=== PATIENT | male | born 1970 | race Caucasian/White ===

== ENCOUNTER 2017-06-30 12:37 | Inpatient (IN) | payer OTHER ==
[~2017-06-30] VITALS: Ht 172.7 cm; Wt 95.0 kg
[2017-06-30 12:47] VITALS: BP 136/85; PULSE 79; RESP 28; TEMP 98.7
[2017-06-30] MEDS ORDERED: SODIUM CHLOR 0.9% 1000 ML INJ 1,000 ML IV SCH (13:02)
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
[2017-06-30] MEDS ORDERED: ONDANSETRON HCL 4 MG/2 ML VIAL IV PUSH ONE (13:15)
[2017-06-30] MEDS ORDERED: DIPHTH/TETANUS/ACEL PERTUSSIS (BOOSTER) 0.5 ML VIAL/PFS IM ONE ×2 (13:15→14:53)
[2017-06-30] MEDS ORDERED: MORPHINE SULFATE 4 MG/ML INJ IV PUSH ONE ×2 (13:15→16:45)
[2017-06-30] MEDS ORDERED: SODIUM CHLORIDE 0.9% FLUSH 10 ML FLUSH IVF PRN (13:15)
[2017-06-30] MEDS ORDERED: ceFAZolin 2 GM PREMIX 100 ML IV ONE (13:15)
[2017-06-30 13:51] LABS: AUTOMATED NEUTROPHIL # 11.1 TH/MM3 (1.8-7.7); BASOPHIL # 0.1 TH/MM3 (0-0.2); BASOPHIL % 0.4 % (0.0-2.0); EOSINOPHIL # 0.3 TH/MM3 (0-0.4); EOSINOPHIL % 2.3 % (0.0-4.0); HEMATOCRIT 43.6 % (39.0-51.0); HEMOGLOBIN 15.3 GM/DL (13.0-17.0); LYMPH % 18.5 % (9.0-44.0); LYMPHOCYTE # 2.8 TH/MM3 (1.0-4.8); MEAN CELL VOLUME 85.9 FL (80.0-100.0); MEAN CORPUSCULAR HEMOGLOBIN 30.2 PG (27.0-34.0); MEAN CORPUSCULAR HGB CONC 35.2 % (32.0-36.0); MONO % 4.4 % (0.0-8.0); MONOCYTE # 0.7 TH/MM3 (0-0.9); NEUT % 74.4 % (16.0-70.0); PLATELET COUNT 214 TH/MM3 (150-450); RED BLOOD COUNT 5.08 MIL/MM3 (4.50-5.90); RED CELL DISTRIBUTION WIDTH 12.8 % (11.6-17.2); WHITE BLOOD COUNT 14.9 TH/MM3 (4.0-11.0)
[2017-06-30 13:59] LABS: PROTHROMBIN TIME - PATIENT 10.4 SEC (9.8-11.6)
[2017-06-30 14:07] LABS: BICARBONATE 27.7 MEQ/L (21.0-32.0); BLOOD UREA NITROGEN 14 MG/DL (7-18); CALCIUM 8.8 MG/DL (8.5-10.1); CHLORIDE 109 MEQ/L (98-107); CREATININE 1.12 MG/DL (0.60-1.30); GLOMERULAR FILTRATION RATE 71 ML/MIN (>89); GLUCOSE,RANDOM 110 MG/DL (74-106); SODIUM (NA) 142 MEQ/L (136-145)
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
[2017-06-30] MEDS ORDERED: ceFAZolin INJ 1,000 MG VIAL ONE (14:53)
[2017-06-30] MEDS ORDERED: IOHEXOL 350 MG/ML 10 ML VIAL (for RAD DIAG) IVCONTRAST ONE (15:30)
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
[2017-06-30 16:59] VITALS: BP 156/70; PULSE 96; RESP 18; O2SAT 91
[2017-06-30] MEDS ORDERED: MORPHINE SULFATE 4 MG/ML INJ IV PUSH PRN (17:15)
[2017-06-30] MEDS ORDERED: SODIUM CHLORIDE 0.9% FLUSH 10 ML FLUSH IV FLUSH PRN (17:15)
[2017-06-30] MEDS ORDERED: ONDANSETRON HCL 4 MG/2 ML VIAL IV PUSH PRN (17:15)
[2017-06-30] MEDS: METHOCARBAMOL 500 MG TAB PO SCH ×2 (17:15→22:23)
[2017-06-30] MEDS ORDERED: ENALAPRILAT 1.25 MG/ML VIAL IV PUSH PRN (17:15)
[2017-06-30] MEDS: LIDOCAINE HCL 5% PATCH T-DERMAL SCH (17:15)
[2017-06-30] MEDS ORDERED: VITATAB56 PO (17:20)
[2017-06-30] MEDS ORDERED: ASPI-516 CHEW (17:20)
[2017-06-30] MEDS ORDERED: BACL10TA PO (17:20)
[2017-06-30] MEDS ORDERED: CYAN100 PO (17:20)
[2017-06-30] MEDS ORDERED: ABIL10TA8 PO (17:20)
[2017-06-30] MEDS ORDERED: CALC1TAB12 PO (17:20)
[2017-06-30] MEDS ORDERED: LOSA100T PO (17:20)
[2017-06-30] MEDS ORDERED: PRIS50TA PO (17:20)
[2017-06-30] MEDS ORDERED: VITA250C3 CHEW (17:20)
[2017-06-30] MEDS ORDERED: CARV25TA (17:20)
[2017-06-30] MEDS ORDERED: VITA250T3 PO (17:20)
[2017-06-30] MEDS ORDERED: FAMO1TAB37 PO (17:20)
[2017-06-30 19:10] VITALS: BP 137/78; PULSE 85; RESP 15; O2SAT 97
[2017-06-30 19:47] VITALS: BP 124/80
[2017-06-30 20:00] VITALS: BP 118/75; PULSE 88; RESP 18; TEMP 97.3; O2SAT 95
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
[2017-06-30] MEDS: FAMOTIDINE 20 MG TAB PO SCH (20:48)
[2017-06-30] MEDS: MAGNESIUM HYDROXIDE SUSP 30 ML CUP PO SCH (20:48)
[2017-06-30] MEDS: DOCUSATE SODIUM 100 MG CAP PO SCH (20:48)
[2017-06-30 23:00] VITALS: O2SAT 96
[2017-07-01] VITALS (7 sets, daily range): BP systolic 113–132; BP diastolic 63–69; PULSE 66–82; RESP 18–19; TEMP 97.2–98.2; O2SAT 94–97
[2017-07-01] MEDS ORDERED: SODIUM CHLORID 0.9% 500 ML IV PRN (00:30)
[2017-07-01] MEDS ORDERED: POVIDONE IODINE 5% (ANTISEPSIS KIT) 4 APPLICATIONS EACH NARE PRN (00:30)
[2017-07-01] MEDS ORDERED: CHLORHEXIDINE GLUCONATE 2 % 1 PACK (2 CLOTHS) TOPICAL PRN (00:30)
[2017-07-01] MEDS ORDERED: LACTATED RINGER'S 1000 ML IV PRN (00:30)
[2017-07-01] MEDS: SODIUM CHLOR 0.9% 1000 ML INJ 1,000 ML IV SCH ×3 (03:37→23:03)
[2017-07-01] MEDS ORDERED: METOPROLOL TARTRATE 25 MG TAB PO PRN (05:45)
[2017-07-01] MEDS: METHOCARBAMOL 500 MG TAB PO SCH (06:05)
[2017-07-01] MEDS ORDERED: MAGN30S PO (07:57)
[2017-07-01] MEDS ORDERED: DOCU1CAP39 PO (07:57)
[2017-07-01] MEDS ORDERED: METHOCARBAMOL 500 MG TAB PO PRN (08:15)
[2017-07-01] MEDS: FAMOTIDINE 20 MG TAB PO SCH ×2 (08:57→20:22)
[2017-07-01] MEDS: BACLOFEN 10 MG TAB PO SCH ×2 (08:57→20:22)
[2017-07-01] MEDS: LIDOCAINE HCL 5% PATCH T-DERMAL SCH (08:57)
[2017-07-01] MEDS: LOSARTAN 50 MG TAB PO SCH (08:57)
[2017-07-01] MEDS: CARVEDILOL 12.5 MG TAB PO SCH ×2 (08:57→20:23)
[2017-07-01] MEDS: CALCIUM/VITAMIN D 250 MG/125 U TAB PO SCH ×2 (08:58→20:23)
[2017-07-01] MEDS: DOCUSATE SODIUM 100 MG CAP PO SCH ×2 (08:58→20:22)
[2017-07-01] MEDS ORDERED: PT OWN: PRISTIQ 50MG PO SCH (09:00)
[2017-07-01] MEDS: MAGNESIUM HYDROXIDE SUSP 30 ML CUP PO SCH ×2 (09:00→20:22)
[2017-07-01] MEDS ORDERED: PNEUMOCOCCAL POLYVALENT INJ 25 MCG/0.5 ML SYR IM ONE (09:00)
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
[2017-07-01] MEDS: ARIPiprazole 5 MG TAB PO SCH (11:29)
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
[2017-07-01] MEDS ORDERED: MORPHINE SULFATE 4 MG/ML INJ IV PUSH PRN (12:45)
[2017-07-01] MEDS: ACETAMINOPHEN 1000 MG/100 ML 100 ML IV SCH ×2 (15:22→20:23)
[2017-07-01] MEDS: GABAPENTIN 300 MG CAP PO SCH ×2 (15:22→17:49)
--- NOTE | 2017-07-01 17:06 | EKG ---
Date Performed: 07/01/2017 Time Performed: 06:01:30 PTAGE: 46 years EKG: Sinus rhythm Leftward axis IV conduction defect Left ventricular hypertrophy Extensive ST-T changes may be due to hypertrophy and/or ischemia Abnormal ECG NO PREVIOUS TRACING DOCTOR: Dick Cross Interpretating Date/Time 07/01/2017 17:05:56
[2017-07-02] VITALS (7 sets, daily range): BP systolic 104–126; BP diastolic 60–71; PULSE 64–95; RESP 16–18; TEMP 97.1–98.4; O2SAT 94–96
[2017-07-02] MEDS: ACETAMINOPHEN 1000 MG/100 ML 100 ML IV SCH ×3 (02:13→20:10)
[2017-07-02 05:10] LABS: BASOPHIL % 0.2 % (0.0-2.0); EOSINOPHIL # 0.2 TH/MM3 (0-0.4); EOSINOPHIL % 1.7 % (0.0-4.0); HEMATOCRIT 34.2 % (39.0-51.0); LYMPHOCYTE # 2.7 TH/MM3 (1.0-4.8); MEAN CELL VOLUME 86.3 FL (80.0-100.0); MEAN CORPUSCULAR HEMOGLOBIN 30.3 PG (27.0-34.0); MEAN CORPUSCULAR HGB CONC 35.1 % (32.0-36.0); MEAN PLATELET VOLUME 9.3 FL (7.0-11.0); MONOCYTE # 0.7 TH/MM3 (0-0.9); NEUT % 63.1 % (16.0-70.0); PLATELET COUNT 159 TH/MM3 (150-450); RED BLOOD COUNT 3.97 MIL/MM3 (4.50-5.90); RED CELL DISTRIBUTION WIDTH 12.9 % (11.6-17.2); WHITE BLOOD COUNT 9.5 TH/MM3 (4.0-11.0)
[2017-07-02 05:18] LABS: BICARBONATE 28.1 MEQ/L (21.0-32.0); CALCIUM 8.2 MG/DL (8.5-10.1); CREATININE 1.05 MG/DL (0.60-1.30)
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
--- NOTE | 2017-07-02 07:20 | HHI.FF ---
Face to Face Verification Diagnosis: (1) Fracture of forearm, left, closed Occupational Therapy Left UE Weight Bearing: Non WB Left UE Range of Motion: Passive ROM Nursing Dressing Changes: Daily dressing change, Xeroform, Coverderm/Primapore I have seen patient Per Louis on 07/02/17. My clinical findings support the need for the requested home health care services because: Ltd mobility - disease progression I certify that my clinical findings support that this patient is homebound because: Post-op weakness Chris Flores/Family Worker PA Jul 02, 2017 07:20
[2017-07-02] MEDS ORDERED: HYDR-3580 PO (07:22)
[2017-07-02] MEDS: CARVEDILOL 12.5 MG TAB PO SCH ×2 (07:39→20:09)
[2017-07-02] MEDS ORDERED: ceFAZolin 2 GM PREMIX 50 ML ONE (08:11)
[2017-07-02] MEDS ORDERED: VANCOMYCIN HCL 1000 MG VIAL ONE (08:11)
[2017-07-02] MEDS ORDERED: GENTAMICIN SULFATE 80 MG/2 ML VIAL ONE (08:12)
[2017-07-02] MEDS: ARIPiprazole 5 MG TAB PO SCH (09:00)
[2017-07-02] MEDS: FAMOTIDINE 20 MG TAB PO SCH ×2 (09:00→20:09)
[2017-07-02] MEDS: BACLOFEN 10 MG TAB PO SCH ×2 (09:00→20:09)
[2017-07-02] MEDS: CALCIUM/VITAMIN D 250 MG/125 U TAB PO SCH ×2 (09:00→20:09)
[2017-07-02] MEDS: LIDOCAINE HCL 5% PATCH T-DERMAL SCH ×2 (09:00→18:20)
[2017-07-02] MEDS: LOSARTAN 50 MG TAB PO SCH (09:00)
[2017-07-02] MEDS: MAGNESIUM HYDROXIDE SUSP 30 ML CUP PO SCH ×2 (09:00→20:08)
[2017-07-02] MEDS: DOCUSATE SODIUM 100 MG CAP PO SCH ×2 (09:00→20:09)
[2017-07-02] MEDS ORDERED: DEXMEDETOMIDINE HCL 200 MCG/2 ML VIAL ONE (10:06)
[2017-07-02] MEDS: LACTATED RINGER'S 1000 ML INJ 1,000 ML IV SCH (11:57)
[2017-07-02] MEDS ORDERED: ROCURONIUM INJ 50 MG/5 ML SYRINGE IV PUSH ONE (12:00)
[2017-07-02] MEDS ORDERED: LACTATED RINGER'S 1000 ML INJ 1,000 ML IV ONE (12:00)
[2017-07-02] MEDS ORDERED: LIDOCAINE HCL 1% PF 5 ML SYRINGE OTHER ONE (12:00)
[2017-07-02] MEDS ORDERED: ONDANSETRON HCL 4 MG/2 ML VIAL IV PUSH ONE (12:00)
[2017-07-02] MEDS ORDERED: KETOROLAC TROMETHAMINE 30 MG/ML (IVP) VIAL IV PUSH ONE (12:00)
[2017-07-02] MEDS ORDERED: STERILE WATER FOR INJECTION 20 ML VIAL IV ONE (12:00)
[2017-07-02] MEDS ORDERED: SODIUM CHLOR 0.9% 250 ML INJ 250 ML IV ONE (12:00)
[2017-07-02] MEDS ORDERED: VECURONIUM BROMIDE 20 MG VIAL IV ONE (12:00)
[2017-07-02] MEDS ORDERED: PROPOFOL 200 MG/20 ML AMP IV ONE (12:00)
[2017-07-02] MEDS ORDERED: DEXAMETHASONE SOD PHOS 4 MG/ML VIAL IV ONE (12:00)
[2017-07-02] MEDS ORDERED: PHENYLEPH/NS 1000 MCG/10 ML SYR IV ONE (12:00)
[2017-07-02] MEDS ORDERED: NEOSTIGMINE 5 MG/5 ML SYRINGE IV PUSH ONE (12:00)
[2017-07-02] MEDS ORDERED: GLYCOPYRROLATE 1 MG/5 ML SYRINGE IV PUSH ONE (12:00)
--- NOTE | 2017-07-02 12:07 | PD.OP ---
cc: Yunier Easley MD Operative Report Date of Surgery: Jul 02, 2017 Preoperative Diagnosis: Displaced left radius and ulna shaft fractures Postoperative Diagnosis: Procedure: Open reduction internal fixation left radial shaft, open reduction fixation left ulnar shaft fractures Anesthesia: General Surgeon: Yunier Easley Instructor Adjunct Pharmacy Technician(s): REZA Miller PA-C The surgical procedure was assisted by my physician assistant manager of operations. My P.A. presence was necessary throughout this case for the manipulation and positioning of the surgical extremity. My P.A. was assisting me throughout the duration of this procedure. The skill set of a physician assistant manager of operations was medically necessary to complete this procedure. During the surgical case the surgical endoscopist was working at the back table and the physician assistant manager of operations was directly assisting me. Operation and Findings: Patient was seen and examined preoperatively. Patient was found to have displaced left radius and ulna shaft fractures. Informed consent was obtained and operative site was marked. Patient was brought to operating room and given IV sedation and general anesthesia. Timeout procedure was performed. Operative extremity was prepped and draped with alcohol followed by Hibiclens and draped in usual sterile fashion. IV antibiotics were administered prior to incision. Procedure began with a 5 inch incision over the subcutaneous border of the ulna. Fascia was elevated off of the bone. Fracture site was visualized. Fracture tenaculums were used to reduce fracture. There was an additional butterfly fragment that was reduced. Fracture keyed into anatomic alignment. A Synthes plate was placed across the fracture. Plate was provisionally held to bone with K wires. 3.5 cortical screws were used to compress plate to bone. Multiple screws were placed in each side of fracture. K wires were removed. Fluoroscopy confirmed excellent alignment of fracture with well-placed hardware. Incision was now closed with #1 Vicryl, 3-0 Vicryl, and zachary. Next attention was turned to the radius. A 5 inch incision was made over the volar aspect of the forearm. A standard volar approach was utilized. The interval between the radial artery and superficial radial nerve was identified. Neurovascular structures were protected. Soft tissue was elevated off the bone. Fracture site was visualized. Fracture fragments were carefully reduced. The fracture was difficult to appellate court judge reduction. Patient had a large amount of heterotopic bone from previous fracture. There was some deformity of the radius from previous injury. There was mild comminution at the fracture site. The fractures did not have an obvious reduction horne. K wires were used to hold provisional fixation. A Synthes plate was contoured to fit the radius. Plate was provisionally held with K wires. 3.5 cortical screws were used to compress plate to bone. Multiple screws were placed in each side of fracture. K wires were removed. The volar incision was now partially closed. Patient had moderate swelling of the forearm. Because of the swelling I did not feel that it was safe to completely close the incision. A wound VAC dressing was now applied. VAC dressing was cut to fit the wound and sealed appropriately. Final fluoroscopy revealed excellent of fracture with well-placed hardware. Sterile dressings were applied with Xeroform 4 x 4 soft roll and Ronnie wrap. Patient was awakened and transferred to recovery room in stable condition. Forearm compartments were soft and compressible. Patient will need surgery for wound closure in 2-3 days when swelling has improved. Yunier Easley MD Jul 02, 2017 12:07
[2017-07-02] MEDS ORDERED: DO NOT ADM ANY ANTICOAGULANT DRUGS PRN (12:27)
[2017-07-02] MEDS ORDERED: MIDAZOLAM HCL 2 MG/2 ML VIAL ONE (12:35)
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
[2017-07-02] MEDS ORDERED: *morphine SULFATE 8 MG/ML PERIprocedure ONLY ONE (13:00)
[2017-07-02] MEDS: GABAPENTIN 300 MG CAP PO SCH ×2 (13:00→17:08)
[2017-07-02] MEDS: KETOROLAC TROMETHAMINE 30 MG/ML (IVP) VIAL IVP SCH ×2 (14:21→20:09)
--- NOTE | 2017-07-02 15:23 | RADRPT ---
EXAM DATE/TIME: 07/02/2017 11:42 [facility] COMPARISON: FOREARM LEFT (2VWS), June 30, 2017, 13:47. INDICATIONS : ORIF left forearm fracture. MEDICAL HISTORY : Unobtainable. SURGICAL HISTORY : Unobtainable. ENCOUNTER: Subsequent ACUITY: 2 days PAIN SCORE: Non-responsive. LOCATION: Left forearm. CONCLUSION: Fluoroscopic images during internal fixation with plate and screws along the radius and ulna fixating fractures which are near anatomic. Derrick Carter MD on July 02, 2017 at 15:20 Board Certified Radiologist. This report was verified electronically.
[2017-07-02] MEDS: ceFAZolin 2 GM PREMIX 50 ML IV SCH ×2 (18:20→23:52)
[2017-07-02] MEDS: VANCOMYCIN INJ 1,000 MG in SODIUM CHLOR 0.9% 250 ML INJ 250 ML IV SCH (21:05)
[2017-07-03] VITALS (8 sets, daily range): BP systolic 111–132; BP diastolic 61–71; PULSE 77–91; RESP 18; TEMP 97.1–98.2; O2SAT 95–97
[2017-07-03] MEDS: LACTATED RINGER'S 1000 ML INJ 1,000 ML IV SCH (00:27)
[2017-07-03] MEDS: KETOROLAC TROMETHAMINE 30 MG/ML (IVP) VIAL IVP SCH ×4 (02:06→21:56)
[2017-07-03 06:18] LABS: AUTOMATED NEUTROPHIL # 12.5 TH/MM3 (1.8-7.7); BASOPHIL % 0.3 % (0.0-2.0); HEMATOCRIT 33.5 % (39.0-51.0); HEMOGLOBIN 11.5 GM/DL (13.0-17.0); LYMPH % 9.9 % (9.0-44.0); LYMPHOCYTE # 1.5 TH/MM3 (1.0-4.8); MEAN CELL VOLUME 86.4 FL (80.0-100.0); MEAN CORPUSCULAR HEMOGLOBIN 29.6 PG (27.0-34.0); MEAN CORPUSCULAR HGB CONC 34.2 % (32.0-36.0); MEAN PLATELET VOLUME 9.2 FL (7.0-11.0); MONO % 5.6 % (0.0-8.0); MONOCYTE # 0.8 TH/MM3 (0-0.9); NEUT % 84.2 % (16.0-70.0); PLATELET COUNT 182 TH/MM3 (150-450); RED BLOOD COUNT 3.87 MIL/MM3 (4.50-5.90); RED CELL DISTRIBUTION WIDTH 12.7 % (11.6-17.2); WHITE BLOOD COUNT 14.9 TH/MM3 (4.0-11.0)
[2017-07-03 06:42] LABS: BICARBONATE 26.5 MEQ/L (21.0-32.0); CALCIUM 8.5 MG/DL (8.5-10.1); CREATININE 1.01 MG/DL (0.60-1.30)
--- NOTE | 2017-07-03 06:47 | PD.ORT.PN ---
Subjective Subjective Remarks Pain controlled. Is in Colles' sling and has wound VAC in place Objective Vitals Vital Signs Date Time Temp Pulse Resp B/P (MAP) Pulse Ox O2 Delivery O2 Flow Rate FiO2 07/03/17 04:54 18 07/03/17 04:00 97.3 84 18 132/69 (90) 95 07/03/17 02:52 18 07/03/17 00:00 97.8 91 18 122/61 (81) 95 07/02/17 21:29 Nasal Cannula 3.00 07/02/17 20:45 18 07/02/17 20:00 98.3 95 18 124/71 (88) 95 07/02/17 17:05 97.3 89 18 121/69 (86) 95 07/02/17 16:29 94 Nasal Cannula 3.00 07/02/17 13:30 97.2 64 18 126/69 (88) 94 07/02/17 13:15 97.5 66 16 120/65 (83) 98 Nasal Cannula 3 07/02/17 13:05 15 07/02/17 13:00 63 15 118/63 (81) 97 Nasal Cannula 3 07/02/17 12:45 60 15 112/64 (80) 98 Nasal Cannula 4 07/02/17 12:30 59 15 104/60 (75) 96 Nasal Cannula 4 07/02/17 12:25 97.8 58 16 94/53 (67) 94 Nasal Cannula 4 07/02/17 08:00 98.4 66 18 119/68 (85) 96 I/O 07/02/17 07/02/17 07/02/17 07/03/17 07/03/17 07/03/17 07:00 15:00 23:00 07:00 15:00 23:00 Intake Total 100 ml 1500 ml 350 ml 50 ml Output Total 100 ml 220 ml Balance 100 ml 1400 ml 130 ml 50 ml IV Total 100 ml 350 ml 50 ml Other 1500 ml Drainage Total 220 ml Estimated Blood Loss 100 ml # Voids 0 Result Diagram: 07/03/17 0604 07/03/17 0604 Imaging Last [address] 06/30/17 1302 Signed Impressions: Service Date/Time: Friday, June 30, 2017 15:06 - CONCLUSION: 1. No fracture is seen. 2. Soft tissue swelling of the right scalp and right face. 3. Mild right frontal and right anterior ethmoid sinuses. Dimitry Rainey MD Head CT 06/30/17 1302 Signed Impressions: Service Date/Time: Friday, June 30, 2017 15:06 - CONCLUSION: No acute intracranial injury Dimitry Ordonez MD Chest X-Ray 06/30/17 130 Signed Impressions: Service Date/Time: Friday, June 30, 2017 13:38 - CONCLUSION: Abnormal chest appearance iDmitry Ordonez MD Chest CT 06/30/17 130 Signed Impressions: Service Date/Time: Friday, June 30, 2017 15:22 - CONCLUSION: Manubrial fracture and left second rib fracture. Minimal underlying mediastinal hematoma and small left effusion. Dimitry Ordonez MD Cervical Spine CT 06/30/17 130 Signed Impressions: Service Date/Time: Friday, June 30, 2017 15:06 - CONCLUSION: No acute bony injury in the cervical spine Dimitry Ordonez MD Abdomen/Pelvis CT 06/30/17 130 Signed Impressions: Service Date/Time: Friday, June 30, 2017 15:22 - CONCLUSION: No acute traumatic injury in the abdomen or pelvis. Dimitry Ordonez MD Objective Remarks Right upper extremity: Full range of motion and neurovascularly intact Bilateral lower extremities: Full range of motion with no pain or laxity. Intact sensation distally. Left upper extremity: No pain with shoulder motion. Clean dry dressings with intact sensation of her radial ulnar median nerve distributions with good capillary refills. He is able to slightly extend and flex all his fingers. Assessment & Plan Assessment and Plan Left radius and ulna shaft fractures ORIF POD 1 with wound VAC application Remain in college sling and elevate arm Maintain wound VAC N.p.o. after midnight If swelling has improved we will plan on going back to the OR tomorrow for irrigation debridement and final closure. Potentially may be postponed until Saturday depending on swelling. Nonweightbearing left upper extremity Omar Lunsford Jr. Jul 03, 2017 06:47
--- NOTE | 2017-07-03 06:59 | PD.ORT.PN ---
Subjective Subjective Remarks POD 1 s/p ORIF Left BBFA with vac placement doing well. reports pain better today than yesterday Objective Vitals Vital Signs Date Time Temp Pulse Resp B/P (MAP) Pulse Ox O2 Delivery O2 Flow Rate FiO2 07/03/17 04:54 18 07/03/17 04:00 97.3 84 18 132/69 (90) 95 07/03/17 02:52 18 07/03/17 00:00 97.8 91 18 122/61 (81) 95 07/02/17 21:29 Nasal Cannula 3.00 07/02/17 20:45 18 07/02/17 20:00 98.3 95 18 124/71 (88) 95 07/02/17 17:05 97.3 89 18 121/69 (86) 95 07/02/17 16:29 94 Nasal Cannula 3.00 07/02/17 13:30 97.2 64 18 126/69 (88) 94 07/02/17 13:15 97.5 66 16 120/65 (83) 98 Nasal Cannula 3 07/02/17 13:05 15 07/02/17 13:00 63 15 118/63 (81) 97 Nasal Cannula 3 07/02/17 12:45 60 15 112/64 (80) 98 Nasal Cannula 4 07/02/17 12:30 59 15 104/60 (75) 96 Nasal Cannula 4 07/02/17 12:25 97.8 58 16 94/53 (67) 94 Nasal Cannula 4 07/02/17 08:00 98.4 66 18 119/68 (85) 96 I/O 07/02/17 07/02/17 07/02/17 07/03/17 07/03/17 07/03/17 07:00 15:00 23:00 07:00 15:00 23:00 Intake Total 100 ml 1500 ml 350 ml 410 ml Output Total 100 ml 220 ml 1300 ml Balance 100 ml 1400 ml 130 ml -890 ml Intake Oral 360 ml IV Total 100 ml 350 ml 50 ml Other 1500 ml Output Urine Total 1300 ml Drainage Total 220 ml Estimated Blood Loss 100 ml # Voids 0 # Bowel Movements 0 Result Diagram: 07/03/17 0604 07/03/17 0604 Imaging Last [address] 06/30/17 1302 Signed Impressions: Service Date/Time: Friday, June 30, 2017 15:06 - CONCLUSION: 1. No fracture is seen. 2. Soft tissue swelling of the right scalp and right face. 3. Mild right frontal and right anterior ethmoid sinuses. Dimitry Rainey MD Head CT 06/30/17 1302 Signed Impressions: Service Date/Time: Friday, June 30, 2017 15:06 - CONCLUSION: No acute intracranial injury Dimitry Ordonez MD Chest X-Ray 06/30/17 1302 Signed Impressions: Service Date/Time: Friday, June 30, 2017 13:38 - CONCLUSION: Abnormal chest appearance Dimitry Ordonez MD Chest CT 06/30/17 1302 Signed Impressions: Service Date/Time: Friday, June 30, 2017 15:22 - CONCLUSION: Manubrial fracture and left second rib fracture. Minimal underlying mediastinal hematoma and small left effusion. Dimitry Ordonez MD Cervical Spine CT 06/30/17 1302 Signed Impressions: Service Date/Time: Friday, June 30, 2017 15:06 - CONCLUSION: No acute bony injury in the cervical spine Dimitry Ordonez MD Abdomen/Pelvis CT 06/30/17 1302 Signed Impressions: Service Date/Time: Friday, June 30, 2017 15:22 - CONCLUSION: No acute traumatic injury in the abdomen or pelvis. Dimitry Ordonez MD Objective Remarks LUE: +vac. good seal. +colleys sling. good movement of fingers with full sensation Assessment & Plan Assessment and Plan 1) Left radius and ulna shaft fractures ORIF POD 1 with wound VAC application Remain in alvin sling and elevate arm Maintain wound VAC N.p.o. after midnight If swelling has improved we will plan on going back to the OR tomorrow for irrigation debridement and final closure. Potentially may be postponed until Saturday depending on swelling. Nonweightbearing left upper extremity Chris Flores/Case Resolution Specialist FRANCESCA Jul 03, 2017 06:59
[2017-07-03] MEDS: CALCIUM/VITAMIN D 250 MG/125 U TAB PO SCH ×2 (07:51→21:56)
[2017-07-03] MEDS: MAGNESIUM HYDROXIDE SUSP 30 ML CUP PO SCH ×2 (07:51→21:54)
[2017-07-03] MEDS: FAMOTIDINE 20 MG TAB PO SCH ×2 (07:51→21:54)
[2017-07-03] MEDS: DOCUSATE SODIUM 50 MG/SENNA 8.6 MG TAB PO SCH ×2 (07:51→21:56)
[2017-07-03] MEDS: ceFAZolin 2 GM PREMIX 50 ML IV SCH ×2 (07:52→17:36)
[2017-07-03] MEDS: CARVEDILOL 12.5 MG TAB PO SCH ×2 (07:52→21:56)
[2017-07-03] MEDS: LIDOCAINE HCL 5% PATCH T-DERMAL SCH (07:52)
[2017-07-03] MEDS: LOSARTAN 50 MG TAB PO SCH (07:52)
[2017-07-03] MEDS: ARIPiprazole 5 MG TAB PO SCH (07:53)
[2017-07-03] MEDS: GABAPENTIN 300 MG CAP PO SCH ×3 (07:53→17:36)
[2017-07-03] MEDS: BACLOFEN 10 MG TAB PO SCH ×2 (08:01→21:56)
[2017-07-03] MEDS: VANCOMYCIN INJ 1,000 MG in SODIUM CHLOR 0.9% 250 ML INJ 250 ML IV SCH ×2 (10:45→21:55)
[2017-07-03] MEDS ORDERED: LACTULOSE SYRUP 20 GM/30 ML CUP PO ONE (14:00)
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
[2017-07-04] VITALS: BP 130/61; PULSE 71; RESP 18; TEMP 97.5; O2SAT 94
[2017-07-04] MEDS: ceFAZolin 2 GM PREMIX 50 ML IV SCH ×4 (00:40→22:51)
[2017-07-04 04:00] VITALS: BP 133/85; PULSE 69; RESP 18; TEMP 98.7; O2SAT 98
--- NOTE | 2017-07-04 06:38 | PD.ORT.PN ---
Subjective Subjective Remarks Pain controlled. Is in Colles' sling and has wound VAC in place Objective Vitals Vital Signs Date Time Temp Pulse Resp B/P (MAP) Pulse Ox O2 Delivery O2 Flow Rate FiO2 07/04/17 04:00 98.7 69 18 133/85 (101) 98 07/04/17 00:00 97.5 71 18 130/61 (84) 94 07/03/17 20:00 97.6 80 18 111/61 (78) 96 07/03/17 17:58 96 Nasal Cannula 2.00 07/03/17 15:36 97.5 80 18 117/67 (84) 96 07/03/17 11:00 97 Nasal Cannula 3.00 07/03/17 10:52 97.1 77 18 120/64 (82) 97 07/03/17 09:30 Nasal Cannula 3.00 07/03/17 07:47 98.2 81 18 121/71 (88) 97 I/O 07/03/17 07/03/17 07/03/17 07/04/17 07/04/17 07/04/17 07:00 15:00 23:00 07:00 15:00 23:00 Intake Total 410 ml 850 ml 360 ml Output Total 1325 ml 125 ml Balance -915 ml 850 ml -125 ml 360 ml Intake Oral 360 ml 850 ml 360 ml IV Total 50 ml Output Urine Total 1300 ml Drainage Total 25 ml 125 ml # Voids 2 5 # Bowel Movements 0 2 Result Diagram: 07/03/17 0604 07/03/17 0604 Imaging Last [address] 06/30/17 130 Signed Impressions: Service Date/Time: Friday, June 30, 2017 15:06 - CONCLUSION: 1. No fracture is seen. 2. Soft tissue swelling of the right scalp and right face. 3. Mild right frontal and right anterior ethmoid sinuses. Dimitry Rainey MD Head CT 06/30/17 130 Signed Impressions: Service Date/Time: Friday, June 30, 2017 15:06 - CONCLUSION: No acute intracranial injury Dimitry Ordonez MD Chest X-Ray 06/30/171301 Signed Impressions: Service Date/Time: Friday, June 30, 2017 13:38 - CONCLUSION: Abnormal chest appearance Dimitry Ordonez MD Chest CT 06/30/17 1302 Signed Impressions: Service Date/Time: Friday, June 30, 2017 15:22 - CONCLUSION: Manubrial fracture and left second rib fracture. Minimal underlying mediastinal hematoma and small left effusion. Dimitry Ordonez MD Cervical Spine CT 06/30/17 1302 Signed Impressions: Service Date/Time: Friday, June 30, 2017 15:06 - CONCLUSION: No acute bony injury in the cervical spine Dimitry Ordonez MD Abdomen/Pelvis CT 06/30/17 1302 Signed Impressions: Service Date/Time: Friday, June 30, 2017 15:22 - CONCLUSION: No acute traumatic injury in the abdomen or pelvis. Dimitry Ordonez MD Objective Remarks LUE: +vac. good seal. +colle's sling. good movement of fingers with full sensation Assessment & Plan Assessment and Plan 1) Left radius and ulna shaft fractures ORIF POD 1 with wound VAC application Remain in colles sling and elevate arm Maintain wound VAC Resume diet, N.p.o. after midnight we will plan on going back to the OR tomorrow for irrigation debridement and final closure. Nonweightbearing left upper extremity Omar Lunsford Jr. Jul 04, 2017 06:38
[2017-07-04 08:00] VITALS: BP 134/77; PULSE 62; RESP 19; TEMP 98.8; O2SAT 94
[2017-07-04] MEDS: CARVEDILOL 12.5 MG TAB PO SCH ×2 (08:42→21:20)
[2017-07-04] MEDS: FAMOTIDINE 20 MG TAB PO SCH ×2 (08:42→21:20)
[2017-07-04] MEDS: DOCUSATE SODIUM 50 MG/SENNA 8.6 MG TAB PO SCH ×2 (08:42→21:20)
[2017-07-04] MEDS: LOSARTAN 50 MG TAB PO SCH (08:42)
[2017-07-04] MEDS: ARIPiprazole 5 MG TAB PO SCH (08:42)
[2017-07-04] MEDS: GABAPENTIN 300 MG CAP PO SCH ×3 (08:43→17:16)
[2017-07-04] MEDS: MAGNESIUM HYDROXIDE SUSP 30 ML CUP PO SCH ×2 (08:43→21:19)
[2017-07-04] MEDS: CALCIUM/VITAMIN D 250 MG/125 U TAB PO SCH ×2 (08:43→17:15)
[2017-07-04] MEDS: BACLOFEN 10 MG TAB PO SCH ×2 (08:43→21:20)
[2017-07-04] MEDS: VANCOMYCIN INJ 1,000 MG in SODIUM CHLOR 0.9% 250 ML INJ 250 ML IV SCH (09:00)
[2017-07-04] MEDS: LIDOCAINE HCL 5% PATCH T-DERMAL SCH (09:00)
[2017-07-04 11:39] VITALS: BP 134/75; PULSE 78; RESP 19; TEMP 97.6; O2SAT 94
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
[2017-07-04 15:19] VITALS: BP 135/80; PULSE 77; RESP 18; TEMP 97.2; O2SAT 96
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
[2017-07-04] MEDS: MOXIFLOXACIN 0.5% OPHT SOLN 3 ML BTL EACH EYE SCH (18:00)
[2017-07-04 20:00] VITALS: BP 132/77; PULSE 75; RESP 18; TEMP 98.2; O2SAT 97
[2017-07-05] VITALS: BP 113/72; PULSE 75; RESP 18; TEMP 97.7; O2SAT 96
[2017-07-05 04:00] VITALS: BP 124/75; PULSE 75; RESP 18; TEMP 98.2; O2SAT 96
[2017-07-05] MEDS ORDERED: SODIUM CHLORID 0.9% 500 ML IV PRN (06:45)
[2017-07-05] MEDS ORDERED: POVIDONE IODINE 5% (ANTISEPSIS KIT) 4 APPLICATIONS EACH NARE PRN (06:45)
[2017-07-05] MEDS ORDERED: ACETAMINOPHEN 1000 MG/100 ML 100 ML IV ONE (06:45)
[2017-07-05] MEDS ORDERED: LACTATED RINGER'S 1000 ML IV PRN (06:45)
[2017-07-05] MEDS ORDERED: CHLORHEXIDINE GLUCONATE 2 % 1 PACK (2 CLOTHS) TOPICAL PRN (06:45)
[2017-07-05] MEDS ORDERED: GENTAMICIN SULFATE 80 MG/2 ML VIAL ONE (06:48)
[2017-07-05] MEDS ORDERED: VANCOMYCIN HCL 1000 MG VIAL ONE (06:48)
[2017-07-05] MEDS ORDERED: SODIUM CHLOR 0.9% 250 ML INJ 250 ML ONE (06:49)
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
[2017-07-05] MEDS ORDERED: DO NOT ADM ANY ANTICOAGULANT DRUGS PRN (08:30)
[2017-07-05] MEDS ORDERED: MIDAZOLAM HCL 2 MG/2 ML VIAL ONE (08:30)
--- NOTE | 2017-07-05 09:24 | PD.ORT.PN ---
Subjective Subjective Remarks Transferred back to PACU in stable condition Objective Vitals Vital Signs Date Time Temp Pulse Resp B/P (MAP) Pulse Ox O2 Delivery O2 Flow Rate FiO2 07/05/17 09:00 67 17 109/70 (83) 94 Room Air 07/05/17 08:45 67 18 104/66 (79) 94 Room Air 07/05/17 08:30 67 12 103/63 (76) 99 Nasal Cannula 3 07/05/17 08:26 98.5 69 24 95/69 (78) 97 Nasal Cannula 3 07/05/17 04:00 98.2 75 18 124/75 (91) 96 07/05/17 00:00 97.7 75 18 113/72 (86) 96 07/04/17 20:00 98.2 75 18 132/77 (95) 97 07/04/17 15:19 97.2 77 18 135/80 (98) 96 07/04/17 11:39 97.6 78 19 134/75 (94) 94 I/O 07/04/17 07/04/17 07/04/17 07/05/17 07/05/17 07/05/17 07:00 15:00 23:00 07:00 15:00 23:00 Intake Total 360 ml 900 ml 0 ml 400 ml Output Total 25 ml 460 ml Balance 360 ml 875 ml 0 ml -60 ml Intake Oral 360 ml 900 ml 0 ml Other 400 ml Output Urine Total 450 ml Drainage Total 25 ml Estimated Blood Loss 10 ml # Voids 5 3 3 1 # Bowel Movements 2 0 Result Diagram: 07/03/17 0604 07/03/17 0604 Imaging Last [address] 06/30/17 1302 Signed Impressions: Service Date/Time: Friday, June 30, 2017 15:06 - CONCLUSION: 1. No fracture is seen. 2. Soft tissue swelling of the right scalp and right face. 3. Mild right frontal and right anterior ethmoid sinuses. Dimitry Rainey MD Head CT 06/30/17 1302 Signed Impressions: Service Date/Time: Friday, June 30, 2017 15:06 - CONCLUSION: No acute intracranial injury Dimitry Ordonez MD Chest X-Ray 06/30/17 1302 Signed Impressions: Service Date/Time: Friday, June 30, 2017 13:38 - CONCLUSION: Abnormal chest appearance Dimitry Ordonez MD Chest CT 06/30/17 1302 Signed Impressions: Service Date/Time: Friday, June 30, 2017 15:22 - CONCLUSION: Manubrial fracture and left second rib fracture. Minimal underlying mediastinal hematoma and small left effusion. Dimitry Ordonez MD Cervical Spine CT 06/30/17 1302 Signed Impressions: Service Date/Time: Friday, June 30, 2017 15:06 - CONCLUSION: No acute bony injury in the cervical spine Dimitry Ordonez MD Abdomen/Pelvis CT 06/30/17 1302 Signed Impressions: Service Date/Time: Friday, June 30, 2017 15:22 - CONCLUSION: No acute traumatic injury in the abdomen or pelvis. Dimitry Ordonez MD Objective Remarks Left upper extremity: VAC is been removed. Clean dry dressings intact. Good capillary refills. Swelling of +3 of the forearm. Placed in Lenora sling Assessment & Plan Assessment and Plan 1) Left radius and ulna shaft fractures ORIF POD 2 with final closure POD 0 Remain in Colles sling and elevate arm Toradol Nonweightbearing left upper extremity Depending on swelling he may be discharged home tomorrow Follow-up with Dr. Benjamín MA in 2 weeks Omar Lunsford Jr. Jul 05, 2017 09:24
[2017-07-05 09:30] VITALS: BP 124/84; PULSE 72; RESP 16; TEMP 98; O2SAT 95
[2017-07-05] MEDS: MAGNESIUM HYDROXIDE SUSP 30 ML CUP PO SCH ×2 (10:30→21:04)
[2017-07-05] MEDS: LIDOCAINE HCL 5% PATCH T-DERMAL SCH (11:03)
[2017-07-05] MEDS: MOXIFLOXACIN 0.5% OPHT SOLN 3 ML BTL EACH EYE SCH ×3 (11:03→18:00)
[2017-07-05] MEDS: BACLOFEN 10 MG TAB PO SCH ×2 (11:04→21:04)
[2017-07-05] MEDS: FAMOTIDINE 20 MG TAB PO SCH ×2 (11:04→21:04)
[2017-07-05] MEDS: ARIPiprazole 5 MG TAB PO SCH (11:04)
[2017-07-05] MEDS: GABAPENTIN 300 MG CAP PO SCH ×3 (11:04→18:00)
[2017-07-05] MEDS: CARVEDILOL 12.5 MG TAB PO SCH ×2 (11:04→21:04)
[2017-07-05] MEDS: LOSARTAN 50 MG TAB PO SCH (11:05)
[2017-07-05] MEDS: DOCUSATE SODIUM 50 MG/SENNA 8.6 MG TAB PO SCH ×2 (11:05→21:05)
[2017-07-05] MEDS: CALCIUM/VITAMIN D 250 MG/125 U TAB PO SCH ×2 (11:05→21:04)
[2017-07-05 12:00] VITALS: BP 115/75; PULSE 73; RESP 16; TEMP 98; O2SAT 95
[2017-07-05] MEDS ORDERED: ROCURONIUM INJ 50 MG/5 ML SYRINGE IV PUSH ONE (12:00)
[2017-07-05] MEDS ORDERED: ONDANSETRON HCL 4 MG/2 ML VIAL IV ONE (12:00)
[2017-07-05] MEDS ORDERED: KETOROLAC TROMETHAMINE 30 MG/ML (IVP) VIAL IV PUSH ONE (12:00)
[2017-07-05] MEDS ORDERED: PROPOFOL 200 MG/20 ML AMP IV ONE (12:00)
[2017-07-05] MEDS ORDERED: DEXAMETHASONE SOD PHOS 4 MG/ML VIAL IV ONE (12:00)
[2017-07-05] MEDS ORDERED: LIDOCAINE HCL 1% PF 5 ML SYRINGE OTHER ONE (12:00)
[2017-07-05] MEDS: KETOROLAC TROMETHAMINE 30 MG/ML (IVP) VIAL IVP SCH ×2 (14:04→21:05)
[2017-07-05] MEDS: VANCOMYCIN INJ 1,000 MG in SODIUM CHLOR 0.9% 250 ML INJ 250 ML IV SCH (14:05)
[2017-07-05] MEDS: ceFAZolin 2 GM PREMIX 50 ML IV SCH ×2 (14:05→23:00)
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
[2017-07-05 16:00] VITALS: BP 121/68; PULSE 78; RESP 16; TEMP 97.7; O2SAT 94
[2017-07-05 20:00] VITALS: BP 123/82; PULSE 76; RESP 18; TEMP 97.5; O2SAT 94
[2017-07-06 00:12] VITALS: BP 127/65; PULSE 74; RESP 18; TEMP 97.4; O2SAT 95
[2017-07-06 04:00] VITALS: BP 122/65; PULSE 77; RESP 18; TEMP 98.1; O2SAT 94
[2017-07-06] MEDS: VANCOMYCIN INJ 1,000 MG in SODIUM CHLOR 0.9% 250 ML INJ 250 ML IV SCH (04:35)
[2017-07-06] MEDS: KETOROLAC TROMETHAMINE 30 MG/ML (IVP) VIAL IVP SCH (06:00)
[2017-07-06] MEDS: ceFAZolin 2 GM PREMIX 50 ML IV SCH (07:00)
[2017-07-06 08:00] VITALS: BP 124/66; PULSE 63; RESP 16; TEMP 98; O2SAT 98
[2017-07-06] MEDS: MOXIFLOXACIN 0.5% OPHT SOLN 3 ML BTL EACH EYE SCH ×2 (10:50→13:46)
[2017-07-06] MEDS: BACLOFEN 10 MG TAB PO SCH (10:52)
[2017-07-06] MEDS: CALCIUM/VITAMIN D 250 MG/125 U TAB PO SCH (10:52)
[2017-07-06] MEDS: LOSARTAN 50 MG TAB PO SCH (10:52)
[2017-07-06] MEDS: GABAPENTIN 300 MG CAP PO SCH ×2 (10:52→15:18)
[2017-07-06] MEDS: DOCUSATE SODIUM 50 MG/SENNA 8.6 MG TAB PO SCH (10:52)
[2017-07-06] MEDS: ARIPiprazole 5 MG TAB PO SCH (10:52)
[2017-07-06] MEDS: FAMOTIDINE 20 MG TAB PO SCH (10:52)
[2017-07-06] MEDS: CARVEDILOL 12.5 MG TAB PO SCH (10:52)
[2017-07-06] MEDS: MAGNESIUM HYDROXIDE SUSP 30 ML CUP PO SCH (10:52)
[2017-07-06 12:00] VITALS: BP 134/72; PULSE 74; RESP 16; TEMP 98; O2SAT 97
[2017-07-06] MEDS: LIDOCAINE HCL 5% PATCH T-DERMAL SCH (13:46)
[2017-07-06] MEDS ORDERED: LIDO1ADH4 T-DERMAL (14:52)
[2017-07-06] MEDS ORDERED: VIGA0.5D EACH EYE (14:55)
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
== END 2017-07-06 17:50 | disposition home health service (06) | DRG 511 ==
LOC: NEPC 12:37 → NEDA 16:46 → N06A 19:58
PROVIDERS: ADMIT Surgery; ATTEND Surgery
PROC: 0PSJ04Z Reposition Left Radius with Internal Fixation Device, Open Approach (ICD-10-PCS; 2017-07-02)
PROC: 0PSL04Z Reposition Left Ulna with Internal Fixation Device, Open Approach (ICD-10-PCS; principal; 2017-07-02 10:25)
PROC: 0JQH3ZZ Repair Left Lower Arm Subcutaneous Tissue and Fascia, Percutaneous Approach (ICD-10-PCS; 2017-07-05)
DX: S52.202A Unspecified fracture of shaft of left ulna, initial encounter for closed fracture (principal); S22.21XA Fracture of manubrium, initial encounter for closed fracture; I50.9 Heart failure, unspecified; S52.302A Unspecified fracture of shaft of left radius, initial encounter for closed fracture; S22.32XA Fracture of one rib, left side, initial encounter for closed fracture; G89.29 Other chronic pain; S00.81XA Abrasion of other part of head, initial encounter; S60.511A Abrasion of right hand, initial encounter; E78.00 Pure hypercholesterolemia, unspecified; R03.0 Elevated blood-pressure reading, without diagnosis of hypertension; G47.33 Obstructive sleep apnea (adult) (pediatric); H47.22 Hereditary optic atrophy; S05.02XA Injury of conjunctiva and corneal abrasion without foreign body, left eye, initial encounter; H54.62 Unqualified visual loss, left eye, normal vision right eye; Z48.1 Encounter for planned postprocedural wound closure; V43.52XA Car driver injured in collision with other type car in traffic accident, initial encounter; Y92.411 Interstate highway as the place of occurrence of the external cause; Z87.820 Personal history of traumatic brain injury; Z86.73 Personal history of transient ischemic attack (TIA), and cerebral infarction without residual deficits
CPT/HCPCS: 70450; 70486; 71045; 71260; 72125; 73060; 73090; 74177; 76000; 80048; 80307; 85025; 85610; 85730; 86850; 86900; 86901; 90471; 90715; 93005; 94150; 96374; 96375; C1713; G0009; J0131; J0690; J1100; J1580; J1885; J2250; J2270; J2370; J2405; J2710; J3010; J3370; J7030; J7050; J7120; Q9967